=== PATIENT | female | born 2000 | race Caucasian/White ===

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

== ENCOUNTER 2023-01-19 10:42 | Observation (INO) | payer MEDICAID ==
[~2023-01-19] VITALS: Ht 157.5 cm; Wt 88.5 kg
[2023-01-19 10:43] VITALS: BP 160/83
[2023-01-19] MEDS ORDERED: LACTATED RINGERS 1000ML 1,000 ML IV PRN (11:00)
[2023-01-19 11:37] LABS: BASOPHILS % (AUTO) 0.2 % (0.0-5.0); EOSINOPHILS % (AUTO) 1.4 % (0.0-8.0); HEMATOCRIT 33.7 % (36-48); LYMPHOCYTES % (AUTO) 25.1 % (21.0-51.0); MEAN CORPUSCULAR HEMOGLOBIN 28.8 pg (27.0-33.0); MEAN CORPUSCULAR HGB CONC 33.2 g/dL (32.0-36.0); MEAN CORPUSCULAR VOLUME 86.6 fL (79-99); MONOCYTES % (AUTO) 5.6 % (3.0-13.0); NEUTROPHILS % (AUTO) 66.9 % (40.0-77.0); PLATELET COUNT (AUTO) 265 K/uL (130-400); RED BLOOD CELL COUNT(AUTO) 3.89 MIL/uL (4.00-5.50); RED CELL DISTRIBUTION WIDTH 13.3 % (11.0-15.5)
[2023-01-19 11:38] LABS: APPEARANCE,URINE CLOUDY (CLEAR); BILIRUBIN,URINE NEGATIVE (NEGATIVE); COLOR,URINE LIGHT-YELLOW (YELLOW); GLUCOSE, URINE (UA) NEGATIVE (NEGATIVE); KETONES,URINE NEGATIVE (NEGATIVE); LEUKOCYTE ESTERASE ,URINE NEGATIVE Leu/uL (NEGATIVE); NITRATE,URINE NEGATIVE (NEGATIVE); OCCULT BLOOD,URINE NEGATIVE (NEGATIVE); PROTEIN,URINE 10 mg/dL (NEGATIVE); UROBILINOGEN,URINE 0.2 mg/dL (0.2-1.0)
[2023-01-19 11:40] LABS: CREATININE 0.6 mg/dL (0.5-1.5); POTASSIUM 3.8 mmol/L (3.5-5.1)
[2023-01-19 11:44] LABS: ALBUMIN 2.7 g/dL (3.5-5.0); TOTAL PROTEIN, SERUM 6.4 g/dL (6.0-8.3); URIC ACID 4.5 mg/dL (2.6-7.2)
[2023-01-19 11:46] LABS: AMPHET/METH SCREEN,URINE NEGATIVE (NEGATIVE); BARBITURATE SCREEN, URINE NEGATIVE (NEGATIVE); BENZODIAZEPINES SCREEN,URINE NEGATIVE (NEGATIVE); CANNABINOID SCREEN,URINE NEGATIVE (NEGATIVE); COCAINE SCREEN,URINE NEGATIVE (NEGATIVE); OPIATE SCREEN,URINE NEGATIVE (NEGATIVE); PHENCYCLIDINE SCREEN,URINE NEGATIVE (NEGATIVE)
[2023-01-19 11:59] LABS: BACTERIA,URINE FEW /HPF (None Seen); MUCUS,URINE RARE LPF (None Seen); SQUAMOUS EPITHELIAL CELL,UR MOD /HPF (0-2)
[2023-01-19] MEDS ORDERED: ACETAMINOPHEN WITH CODEINE 1 TAB TAB PO SCH (12:00)
[2023-01-19] MEDS ORDERED: PROMETHAZINE HCL 25 MG/ML 1ML AMPULE IM SCH (12:00)
[2023-01-19 12:07] LABS: INR 0.93 (0.85-1.15); PROTHROMBIN TIME 9.4 SEC (9.6-11.6)
[2023-01-19 12:08] LABS: PARTIAL THROMBOPLASTIN TIME 25.9 SEC (26.3-35.5)
== END 2023-01-19 14:03 | disposition home or self-care (01) ==
LOC: EDH 10:42 → LDH 10:54
PROVIDERS: ADMIT Obstetrics & Gynecology; ATTEND Obstetrics & Gynecology
DX: O26.893 Other specified pregnancy related conditions, third trimester (principal); R51.9 Headache, unspecified; O10.913 Unspecified pre-existing hypertension complicating pregnancy, third trimester; Z3A.31 31 weeks gestation of pregnancy
CPT/HCPCS: 96372; 96360; 84550; 80053; 80305; 85025; 85384; 85610; 85730; 81001; 36415; G0378 ×3; G0379; J2550; J7120

== ENCOUNTER 2025-11-11 12:31 | Emergency (ER) | payer MEDICAID ==
[~2025-11-11] VITALS: Ht 157.5 cm; Wt 79.4 kg
--- NOTE | 2025-11-11 12:48 | ERN ---
ED Note History of Present Illness Stated Complaint: HEADACHE Chief Complaint: Headache Time Seen by MD: 12:33 Dictation: This is a 24-year-old female who is 6 weeks , her baby came in with a a headache that started around 9:00 a.m. today. She stated that it was mostly on the right side of the head along with the pain in the periorbital area and watering of the right eye. She had blurred vision and nausea vomitings. She stated that she had 4 episodes of emesis since then. She took Tylenol without much relief. She has had headaches in the past but never this severe. She also reports some photosensitivity. No slurred speech, diplop ia motor weakness or seizure activity. Mother accompanied her to the ER she also reports some tenseness in her neck. No fever chills or rigors. No rash on her body. GCS 15 NIH 0 Temperature 98.2 pulse 94 respirations 18 blood pressure 119/82 with a pulse oximetry of 98% on room air History of preeclampsia Allergies: Coded Allergies: amoxicillin (Unverified Allergy, Unknown, 05/04/19) Past Medical History Past Medical History: Other Additional Past Medical Hx: PRE ECLAMPSIA Surgical History: None Family History: Negative Social History: Negative : 3 Para: 1 Aborts: 1 RN Note Reviewed/Agreed w/PFSH: Yes Review of System Dictation Constitutional: Negative for fever,chills, and weight loss Eyes: Negative for injury, pain,redness, and discharge ENT: Negative for injury,pain or swelling Cardiovascular: Negative for chest pain, palpitations, and edema Respiratory: Negative for shortness of breath, cough, and wheezing, Abdomen/GI: Negative for abdominal pain, nausea, vomiting, diarrhea, and consti pation Back: Negative for injury and pain : Negative for injury, bleeding and discharge MS/Extremity: Negative for injury and deformity Skin: Negative for rash, and discoloration Neuro: Positive for headache, denied weakness, numbness, tingling, and seizure Psych: Negative for suicide ideation, homicidal ideation, and hallucinations Initial Vital Sign VS Vital Signs Date Time Temp Pulse Resp B/P (MAP) Pulse Ox O2 Delivery O2 Flow Rate FiO2 11/11/25 12:32 98.2 94 18 119/82 98 Physical Exam Dictation General: awake, alert, NAD Head/Face: Normocephalic, atraumatic Eyes: PERRL, EOMI, vision at baseline ENT: oral cavity clear, TMs clear, no signs of infection Neck: Trachea midline, supple, no nuchal rigidity Cardiovascular: RRR, normal S1/S2, No MRGs, no JVD Respiratory: CTAB, no respiratory distress, No rales or wheezes Abdomen: Soft, non-tender, non-distended, normal bowel sounds, no guarding or rebound. Skin: Warm, dry, normal turgor, no rash MS/Extremity: Pulses equal, no cyanosis, neurovascular intact, FROM Neuro: COAx4, GCS 15, strength 5/5, CN 2-12 intact, normal cerebellar exam, normal gait, no hemianopsia Psych: Normal behavior, mood, and affect normal Extremities-trace edema without any palpable cords, Homans sign is negative Results (Laboratory/Radiology) Labs Reviewed?: Yes ED Course ED Course Orders Procedure Category Date Status Time Ketorolac PHA 11/11/25 Complete Tromethamine 30mg/Ml 13:00 Prochlorperazine PHA 11/11/25 Complete 10mg/2ml Inj 13:00 Diphenhydramine Hcl PHA 11/11/25 Complete (Benadryl Inj) 13:00 Ct Head/Brain W/O CT 11/11/25 Taken Contrast 13:08 Current Medications Medications (Trade) Dose Ordered Sig/Tonya Route PRN Reason Start Time Stop Time Status Last Admin Dose Admin Diphenhydramine HCl (BENAdryl INJ) 25 mg ONCE ONCE IV 11/11/25 13:00 11/11/25 13:01 DC 11/11/25 13:08 Ketorolac Tromethamine (toRADol) 30 mg ONCE ONCE IVP 11/11/25 13:00 11/11/25 13:01 DC 11/11/25 13:10 Prochlorperazine Edisylate (Compazine 10mg/ 2ml Inj) 5 mg ONCE ONCE IV 11/11/25 13:00 11/11/25 13:01 DC 11/11/25 13:09 Vital Signs Date Time Temp Pulse Resp B/P (MAP) Pulse Ox O2 Delivery O2 Flow Rate FiO2 11/11/25 12:32 98.2 94 18 119/82 98 Medical Decision Making MDM Differential diagnosis: Tension headache, migraine headache, cluster headache, vascular headache, pseudotumor cerebri, arthritis of the TMJ, pituitary apoplexy, Yanci syndrome This is a 24-year-old female who is 6 weeks , her baby came in with a a headache that started around 9:00 a.m. today. She stated that it was mostly on the right side of the head along with the pain in the periorbital area and watering of the right eye. She had blurred vision and nausea vomitings. She stated that she had 4 episodes of emesis since then. She took Tylenol without much relief. She has had headaches in the past but never this severe. She also reports some photosensitivity. No slurred speech, diplopia motor weakness or seizure activity. Mother accompanied her to the ER she also reports some tenseness in her neck. No fever chills or rigors. No rash on her body. GCS 15 NIH 0 Temperature 98.2 pulse 94 respirations 18 blood pressure 119/82 with a pulse oximetry of 98% on room air History of preeclampsia Trial of headache cocktail-Toradol plus Compazine plus Benadryl and reassess. Also request a CT scan of the head 2:[address] head without contrast preliminary no acute intracranial abno rmalities or hemorrhage noted. On re-evaluation patient feels significantly better. We will be discharging her to home on Toradol plus Zofran. Rationale: Tests considered and ordered secondary to shared decision making include: This scan of the head Previous outside records reviewed: Old ER visits. Risk of complication and/or morbidity or mortality of patient management: None Medications-Per medication reconciliation Need for hospitalization: Patient does not meet criteria for hospitalization. Need for emergency major/minor surgery: No There are no social concerns with this patient. Prescription drug management Prescriptions will include symptomatic care Patient's prior external medical records from other ER visits were reviewed by me as indicated. Prior testing and results from previous visits were reviewed. Prior tests were taken into account with medical decision making and resource utilization, independent historian/historians were used to obtain complete medical history. I independently interpreted the test that were performed, results were reviewed by me and considered findings on radiology if ordered. Medical management and examination interpretation discussions were had by me with other qualified healthcare professionals as indicated for the patient's care. Problem List Problem List: (1) Cluster headache (2) Tension headache DX & DISP Disposition: Discharge Departure Impression: Primary Impression: Cluster headache Additional Impression: Tension headache Condition: Stable Scripts Ondansetron (Ondansetron Odt) 4 Mg Tab.rapdis 4 MG PO Q6HPRN PRN for nausea, #16 TAB 0 Refills Prov: MALCOLM CHAVES MD 11/11/25 Ketorolac Tromethamine (Toradol) 10 Mg Tab 10 MG PO QID for pain for 5 Days, #20 TAB 0 Refills Prov: MALCOLM CHAVES MD 11/11/25 Additional Instructions: Patient and the caregiver have been informed of all the diagnostic tests and the imaging conducted during the today's visit to the emergency room and has verbalized understanding of the results I have personally reviewed and interpreted all diagnostic exams performed here in the ER today as well as the vital signs documented by the nursing staff. The patient is now being discharged to home and should follow up with the primary care physician or the specialist as directed by the ER staff. 1 schedule a follow-up appointment; call your primary care physician's office on the next business day to set up a follow-up appointment. 2. Monitor symptoms; if your symptoms worsen return to the emergency room immediately. 3. Return to school/work; you may return to work or school in 2 days or as directed by your primary care physician. 4. Manage pain and fever; take [id number] Tylenol or Advil for pain or fever if there are no contraindications follow the recommended dosage instructions. 5. Stay well hydrated; drink plenty of oral fluids to stay hydrated. 6. Take prescribed medications; take any medications prescribed in the emergency room as directed bring them with you to your primary care physician visit for possible adjustments. 7. Complete medication course; finish the entire course of medication as prescribed even if you start feeling better. Do not have any leftover medication unless instructed otherwise. 8. Follow up on culture results; if a urine culture and wound culture was ordered in the emergency room please follow-up with your primary care physician within 2-3 days to review the culture and sensitivity report for appropriate antibiotic therapy adjustments. 9. Resume home medications; you may resume taking your home medications unless instructed otherwise. Referrals: NONE (PCP) MALCOLM CHAVES MD Nov 11, 2025 12:48
[2025-11-11] MEDS: PROCHLORPERAZINE 10MG/2ML INJ IV ONE (13:09)
[2025-11-11] MEDS ORDERED: KETO10 PO (14:03)
[2025-11-11] MEDS ORDERED: ONDA-243 PO (14:03)
[2025-11-11 14:07] VITALS: BP 115/79; PULSE 88; RESP 18; TEMP 98.2; O2SAT 98
--- NOTE | 2025-11-11 14:17 | HMCIMG ---
EXAM: CT Head Without IV contrast. CLINICAL HISTORY: post 6weeks. severe intractable headache. TECHNIQUE: Axial computed tomography images of the head/brain without intravenous contrast. COMPARISON: None provided. FINDINGS: BRAIN: No evidence of acute hemorrhage. No mass lesion. No CT evidence for acute territorial infarct. No midline shift or extra-axial collections. VENTRICLES: No hydrocephalus. ORBITS: The orbits are unremarkable. SINUSES AND MASTOIDS: The paranasal sinuses and mastoid air cells are clear. BONES: No fracture. SOFT TISSUES: Unremarkable. IMPRESSION: No acute intracranial abnormality. /[place]
== END 2025-11-11 14:13 | disposition home or self-care (01) ==
LOC: EDH 12:31
DX: G44.009 Cluster headache syndrome, unspecified, not intractable (principal); G44.209 Tension-type headache, unspecified, not intractable; R11.2 Nausea with vomiting, unspecified; Z88.1 Allergy status to other antibiotic agents
CPT/HCPCS: 99285; 96374; 70450; 96375; J1885; J1200; J0780